=== PATIENT | female | born 1985 | race Caucasian/White ===

== ENCOUNTER 2019-04-14 23:37 | Emergency (ER) | payer OTHER ==
[~2019-04-14 23:37] MED LIST: ONDA4TAB10 PO; SERT50TA PO; birth control
[2019-04-14 23:51] VITALS: BP 148/113
[2019-04-15] MEDS ORDERED: CIPROFLOXACIN HCL 500 MG TABLET PO ONE
[2019-04-15] MEDS ORDERED: CLINDAMYCIN HCL 150 MG CAPSULE PO ONE
--- NOTE | 2019-04-15 00:01 | PHYS DOC ---
Past History Past Medical History: Depression, Hypothyroid, Other Past Surgical History: Cholecystectomy, Tonsillectomy, Other Smoking: Non-smoker Alcohol Use: None Drug Use: None Adult General Chief Complaint Chief Complaint: ANIMAL BITE [facility] HPI Patient is a 33-year-old female presents complaining of right hand dog bite. At approximately 1900 this evening she was playing with the neighbor's dog which bit her. Patient reports that the dog's owners said the animals vaccines were up-to-date. She reports she washed her hand with soap and water after the event. Denies any numbness or tingling. She reports that the bleeding was difficult to stop. Pain is mild to moderate. Her last tetanus vaccine was less than 5 years ago. She is right hand dominant.[] Review of Systems Review of Systems Constitutional: Denies fever or chills [] Eyes: Denies change in visual acuity, redness, or eye pain [] HENT: Denies nasal congestion or sore throat [] Respiratory: Denies cough or shortness of breath [] Cardiovascular: No additional information not addressed in HPI [] GI: Denies abdominal pain, nausea, vomiting, bloody stools or diarrhea [] : Denies dysuria or hematuria [] Musculoskeletal: Denies back pain or joint pain [] Integument: Denies rash or skin lesions [] Neurologic: Denies headache, focal weakness or sensory changes [] Endocrine: Denies polyuria or polydipsia [] All other systems were reviewed and found to be within normal limits, except as documented in this note. Allergies Allergies Allergies Coded Allergies Type Severity Reaction Last Updated Verified Amoxicillin Allergy Unknown 09/23/13 Yes Sulfa (Sulfonamide Antibiotics) Allergy Unknown 09/23/13 Yes Physical Exam Physical Exam Constitutional: Well developed, well nourished, no acute distress, non-toxic appearance. [] HENT: Normocephalic, atraumatic, bilateral external ears normal, oropharynx moist, no oral exudates, nose normal. [] Eyes: PERRLA, EOMI, conjunctiva normal, no discharge. [] Neck: Normal range of motion, no tenderness, supple, no stridor. [] Cardiovascular:Heart rate regular rhythm, no murmur [] Lungs & Thorax: Bilateral breath sounds clear to auscultation [] Abdomen: Bowel sounds normal, soft, no tenderness, no masses, no pulsatile masses. [] Skin: Warm, dry, no erythema, no rash. [] Back: No tenderness, no CVA tenderness. [] Extremities: Right hand palmar aspect has a 0.5 cm incision each wean the fourth and fifth metacarpal. FDS, FDP, extensor mechanisms are intact. 2 point discrimination is less than 5 mm. No active bleeding is present. The other 3 extremities show: No tenderness, no cyanosis, no clubbing, ROM intact, no edema. [] Neurologic: Alert and oriented X 3, normal motor function, normal sensory function, no focal deficits noted. [] Psychologic: Affect normal, judgement normal, mood normal. [] EKG EKG [] Radiology/Procedures Radiology/Procedures X-ray of the right hand shows no evidence of a radiopaque foreign body, no fracture, no dislocation[] Course & Med Decision Making Course & Med Decision Making Pertinent Labs and Imaging studies reviewed. (See chart for details) ED course: Patient arrived, was placed in bed, and tolerated exam well. X-rays were performed with any complications. She was given oral antibiotics while in the emergency department. The wound was repaired as noted. Hemostasis was achieved. There were no complications. She was discharged in improved condition with all questions answered. Medical decision making: There is no evidence of a fracture or dislocation. No evidence of retained foreign body. Her tetanus status is up-to-date. She is allergic to amoxicillin as well as sulfa medicines so utilizing clindamycin and quinolones.[] Dragon Disclaimer Dragon Disclaimer This electronic medical record was generated, in whole or in part, using a voice recognition dictation system. Departure Departure: Impression: Primary Impression: Dog bite of right hand Disposition: 01 HOME, SELF-CARE Condition: IMPROVED Referrals: IVAN BARRAGAN (PCP) Follow-up in 2 days Patient Instructions: Animal Bite, Sterile Tape Wound Closure Additional Instructions: Follow-up with your regular doctor in 2 days for a wound check. Take the antibiotics as prescribed. Return to the ER if worsening pain, redness, numbness, tingling, or any other concerns. Scripts Ciprofloxacin Hcl (CIPRO) 500 Mg Tablet 1 TAB PO BID for dog bite, #20 TAB Prov: YARI ROMERO DO 04/15/19 Clindamycin Hcl (CLINDAMYCIN HCL) 150 Mg Capsule 2 CAP PO QID for dog bite, #80 CAP Prov: YARI ROMERO 04/15/19 Laceration Repair Lac Repair Indication: Dog bite [] Procedure: The patient was placed in the appropriate position and the area was then washed with soap and water. The laceration was closed with Mastisol and Steri-Strips. The wound area was then dressed with a sterile dressing]. Total repaired wound length: 0.5 cm. Other Items: None The patient tolerated the procedure well. Complications: None. Problem Qualifiers Primary Impression: Dog bite of right hand Encounter type: initial encounter Qualified Codes: S61.451A - Open bite of right hand, initial encounter; W54.0XXA - Bitten by dog, initial encounter YARI ROMERO DO Apr 15, 2019 00:01
[2019-04-15] MEDS ORDERED: CLIN150C14 PO (00:22)
[2019-04-15] MEDS ORDERED: CIPR500T94 PO (00:22)
--- NOTE | 2019-04-15 01:35 | RAD ---
Three-view right hand radiographs 04/14/2019 CLINICAL HISTORY: Dog bite to the right hand. PA, lateral and oblique digital radiographs of the right hand were obtained. No fracture or dislocation of the right hand is seen. No radiopaque foreign body is noted. IMPRESSION: No fracture or radiopaque foreign body is seen. Electronically signed by: Gene Henderson MD (04/15/2019 1:32 AM) [facility]
== END 2019-04-15 00:50 | disposition home or self-care (01) ==
LOC: ER 23:37
DX: S61.451A Open bite of right hand, initial encounter (principal); E03.9 Hypothyroidism, unspecified; Z88.1 Allergy status to other antibiotic agents; Z88.2 Allergy status to sulfonamides; W54.0XXA Bitten by dog, initial encounter; Y93.89 Activity, other specified; Y92.89 Other specified places as the place of occurrence of the external cause; Y99.8 Other external cause status
CPT/HCPCS: 73130; 99284

== ENCOUNTER → 2019-10-18 | Outpatient (CLI) | payer BC, OTHER ==
[~2019-10-18] MED LIST changes: +CIPR500T94 PO; +CLIN150C14 PO
--- NOTE | 2019-10-18 11:28 | RAD ---
EXAM: Right elbow, 3 views. HISTORY: Pain. COMPARISON: None. FINDINGS: 3 views of the right elbow are obtained. There is no fracture, dislocation or subluxation. There is no elbow effusion. IMPRESSION: No acute osseous finding. Electronically signed by: Heena Pretty MD (10/18/2019 11:25 AM) [facility]
== END | disposition home or self-care (01) ==
LOC: DXRAD 10:20
PROVIDERS: ATTEND Family Medicine
DX: M25.521 Pain in right elbow (principal)
CPT/HCPCS: 73080